=== PATIENT | female | born 1980 | race Hispanic/Latino ===

== ENCOUNTER 2020-08-17 13:01 | Emergency (ER) | payer SELFPAY ==
[2020-08-17] MEDS ORDERED: Lidocaine Viscous Sol 2% 15 ml UD Cup ONE (13:24)
[2020-08-17] MEDS ORDERED: Mag-Al 1200 mg/1200 mg/30 ML UDCUP ONE (13:24)
[2020-08-17 13:27] LABS: #Basophils 0.1 thou/uL (0.0-0.2); #Lymphocytes 5.6 thou/uL (1.20-3.40); #Monocytes 0.9 thou/uL (0.11-0.59); #Neutrophils 7.7 thou/uL (1.40-6.50); %Basophils 0.6 % (0.0-1.0); %Eosinophils 0.3 % (0.0-10.0); %Lymphocytes 39.2 % (21.0-51.0); %Monocytes 6.2 % (0.0-10.0); %Neutrophils 53.7 % (42.0-75.0); Hemoglobin 12.6 g/dL (12.0-16.0); Mean Corpuscular HGB CONC 32.7 g/dL (32.0-36.0); Mean Corpuscular Hemoglobin 26.3 pg (27.0-31.0); Mean Corpuscular Volume 80.3 fL (78.0-98.0); Mean Platelet Volume 7.7 fL (7.4-10.4); Platelet Count 250 thou/uL (130-400); RBC Distribution Width 12.7 % (11.5-14.5); Red Blood Cell (RBC) Count 4.81 mill/uL (4.20-5.40); White Blood Cell (WBC) Count 14.4 thou/uL (4.8-10.8)
[2020-08-17 13:45] LABS: BHCG - Serum Negative (NEGATIVE); Pregs Control Background? CLEAR/WHITE (CLR/WHITE); Pregs Control Bar Appear? YES (CONTROL BAR)
[2020-08-17 14:03] LABS: ALT (SGPT) 11 U/L (8-55); AST (SGOT) 11 U/L (5-34); Alkaline Phosphatase 79 U/L (40-110); Anion Gap 16 mmol/L (10-20); BUN (Urea Nitrogen) 10 mg/dL (7.0-18.7); Bilirubin, Total 0.5 mg/dL (0.2-1.2); Calc. Creatinine Clearance 0 mL/min (70-130); Carbon Dioxide 20 mmol/L (22-29); Chloride 104 mmol/L (98-107); Globulin 3.5 g/dL (2.4-3.5); Glucose 125 mg/dL (70-105); Lipase 12 U/L (8-78); Potassium 3.7 mmol/L (3.5-5.1); Protein, Total 7.5 g/dL (6.0-8.3); Sodium 136 mmol/L (136-145)
--- NOTE | 2020-08-17 15:27 | ULT ---
Exam: Right upper quadrant ultrasound: HISTORY: Pain COMPARISON: None FINDINGS: Visualized liver:Somewhat heterogeneous coarse liver echogenicity Gallbladder:Multiple mobile shadowing gallstones without gallbladder wall thickening or pericholecyst ic fluid. Common bile duct:Within normal limits. The visualized pancreas and right kidney are unremarkable. No evidence for abscess or abnormal fluid collection in the right upper quadrant. IMPRESSION: Multiple mobile shadowing gallstones without ultrasound evidence for acute cholecystitis. Somewhat coarse heterogeneous liver echogenicity evidence for nonspecific hepatic parenchymal process .
== END 2020-08-17 16:01 | disposition home or self-care (01) ==
LOC: ERS 13:01
DX: K80.50 Calculus of bile duct without cholangitis or cholecystitis without obstruction (principal)
CPT/HCPCS: 36415; 76705; 80053; 83690; 84703; 85025; 93005

== ENCOUNTER 2021-08-17 09:55 | Emergency (ER) | payer SELFPAY ==
[2021-08-17] MEDS ORDERED: Ketorolac Tromethamine 30 MG/ML VIAL ONE (10:20)
== END 2021-08-17 11:20 | disposition home or self-care (01) ==
LOC: ERS 09:55
DX: S46.912A Strain of unspecified muscle, fascia and tendon at shoulder and upper arm level, left arm, initial encounter (principal)
CPT/HCPCS: 96372; J1885